=== PATIENT | male | born 1970 | race Hispanic/Latino ===

== ENCOUNTER 2017-05-16 12:29 | Observation (INO) | payer OTHER ==
[2017-05-16] MEDS ORDERED: Sodium Chloride 0.9% 1,000 ML IV STA (13:03)
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
[2017-05-16 13:39] LABS: BASO # 0.1 K/uL (0.0-0.2); BASO % 0.8 % (0.0-2.0); EOS # 0.1 K/uL (0.0-0.7); EOS % 1.4 % (0.0-4.0); HEMATOCRIT 41.1 % (35.0-51.0); LYMPH % 29.1 % (20.0-40.0); MEAN CORPUSCULAR HEMOGLOBIN 29.2 pg (27.0-31.0); MEAN CORPUSCULAR HGB CONC 34.4 g/dL (33.0-37.0); MONO % 9.4 % (0.0-10.0); NEUT # 6.1 K/uL (1.8-7.0); NEUT % 59.3 % (50.0-75.0); NRBC % 0.1 % (0.0-0.0); WHITE BLOOD COUNT 10.2 K/uL (4.8-10.8)
[2017-05-16 13:48] LABS: ALB/GLOB RATIO 1.2 (1.0-2.1); ALKALINE PHOSPHATASE 107 U/L (38-126); ALT/SGPT 45 U/L (21-72); AST/SGOT 23 U/L (17-59); BLOOD UREA NITROGEN 14 mg/dl (9-20); CALCIUM 9.1 mg/dL (8.4-10.2); CARBON DIOXIDE 23 mmol/L (22-30); CHLORIDE 105 mmol/L (98-107); GFR AFRICAN-AMERICAN > 60; GLUCOSE,RANDOM 226 mg/dL (75-110); POTASSIUM 4.2 MMOL/L (3.6-5.0); SODIUM 140 mmol/l (132-148); TOTAL PROTEIN 8.1 G/DL (6.3-8.2)
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
[2017-05-16 15:54] LABS: RBC URINE 2 /hpf (0-3); URINE BACTERIA RARE (<OCC); URINE BILIRUBIN NEGATIVE (NEGATIVE); URINE BLOOD NEGATIVE (NEGATIVE); URINE COLOR YELLOW (YELLOW); URINE GLUCOSE (UA) >=500 mg/dL (Normal); URINE KETONE NEGATIVE (NEGATIVE); URINE LEUKOCYTE ESTERASE NEG Leu/uL (Negative); URINE PROTEIN NEGATIVE (NEGATIVE); URINE UROBILINOGEN 0.2-1.0 mg/dL (0.2-1.0); WBC URINE < 1 /hpf (0-5)
[2017-05-16] MEDS: Sodium Chloride 0.9% 1,000 ML IV SCH (17:15)
[2017-05-17] MEDS: Sodium Chloride 0.9% 1,000 ML IV SCH ×2 (00:18→08:11)
[2017-05-17 03:22] LABS: HEMATOCRIT 37.7 % (35.0-51.0); MEAN CELL VOLUME 85.6 fl (80.0-94.0); MEAN CORPUSCULAR HEMOGLOBIN 29.4 pg (27.0-31.0); MEAN CORPUSCULAR HGB CONC 34.4 g/dL (33.0-37.0); RED CELL DISTRIBUTION WIDTH 13.3 % (11.5-14.5); WHITE BLOOD COUNT 8.7 K/uL (4.8-10.8)
[2017-05-17 03:30] LABS: ALB/GLOB RATIO 1.2 (1.0-2.1); ALKALINE PHOSPHATASE 78 U/L (38-126); ALT/SGPT 41 U/L (21-72); AST/SGOT 23 U/L (17-59); BLOOD UREA NITROGEN 15 mg/dl (9-20); CALCIUM 8.4 mg/dL (8.4-10.2); CARBON DIOXIDE 22 mmol/L (22-30); CHLORIDE 109 mmol/L (98-107); GFR AFRICAN-AMERICAN > 60; GLUCOSE,RANDOM 197 mg/dL (75-110); SODIUM 140 mmol/l (132-148); TOTAL PROTEIN 6.5 G/DL (6.3-8.2)
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
[2017-05-17 08:28] VITALS: RESP 20; TEMP 97.8
[2017-05-17] MEDS ORDERED: EMPAGLIFLOZIN PO SCH (09:00)
[2017-05-17] MEDS ORDERED: LINAGLIPTIN PO SCH (09:00)
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
[2017-05-17 12:41] VITALS: BP 155/81; PULSE 50; O2SAT 97
--- NOTE | 2017-05-17 19:27 | CARD ---
APPROVED REPORT EKG Measurement Heart [id number] <Conclusion> Sinus rhythm with marked sinus arrhythmia Minimal voltage criteria for LVH, may be normal variant Borderline ECG
== END 2017-05-17 13:42 | disposition home or self-care (01) ==
LOC: H.ER 12:29 → H.ERHOLD 14:16 → H.TEL 16:24
PROVIDERS: ADMIT Family Medicine; ATTEND Family Medicine
DX: T75.4XXA Electrocution, initial encounter (principal); W86.8XXA Exposure to other electric current, initial encounter; E11.9 Type 2 diabetes mellitus without complications; I35.9 Nonrheumatic aortic valve disorder, unspecified; Y92.69 Other specified industrial and construction area as the place of occurrence of the external cause; Y93.9 Activity, unspecified
CPT/HCPCS: 36415; 70450; 71020; 80053; 81003; 82550; 82948; 83874; 84484; 85025; 85027; 93005; 96360; 99285; G0378; J1885; J7040